=== PATIENT | male | born 1970 | race African-American/Black ===

== ENCOUNTER 2017-06-20 09:55 | Emergency (ER) | payer BC ==
[~2017-06-20] VITALS: Ht 165.1 cm; Wt 97.7 kg
[2017-06-20 09:57] VITALS: BP 140/85; TEMP 99.5
[2017-06-20 10:40] LABS: COLLECTION METHOD CLEAN CATCH
[2017-06-20 10:59] LABS: MUCOUS Present /lpf; PH 5 (5-8); SQUAMOUS EPITHELIAL 0-2 /hpf; URINE APPEARANCE Hazy; URINE BACTERIA None Seen /hpf; URINE BILIRUBIN Negative (NEGATIVE); URINE BLOOD 1+ (NEGATIVE); URINE COLOR Yellow; URINE GLUCOSE 2+ (NEGATIVE); URINE KETONE Negative (NEGATIVE); URINE LEUKOCYTE ESTERASE 1+ (NEGATIVE); URINE PROTEIN(semi-quant) Negative (NEGATIVE); URINE UROBILINOGEN Negative (NEGATIVE); URINE WBC >50 /hpf
[2017-06-20] MEDS ORDERED: CIPRO 500MG TA500 MG PO (11:13)
[2017-06-20 11:17] VITALS: PULSE 97
[2017-06-20 13:49] LABS: CHLAMYDIA/TRACH by PCR Male NOT DETECTED; Neisseria Gon by PCR Male DETECTED
== END 2017-06-20 11:20 | disposition home or self-care (01) ==
LOC: COL.ER 09:55
PROVIDERS: Physician Assistant
DX: N39.0 Urinary tract infection, site not specified (principal); B96.89 Other specified bacterial agents as the cause of diseases classified elsewhere